=== PATIENT | female | born 2005 | race African-American/Black ===

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

== ENCOUNTER 2024-07-13 14:17 | Emergency (ER) | payer MEDICAID ==
[~2024-07-13] VITALS: Ht 165.1 cm; Wt 60.0 kg
[~2024-07-13 14:17] MED LIST: IBUP-2741 MT
[2024-07-13 14:24] VITALS: O2SAT 100
[2024-07-13] MEDS: KETOROLAC 30MG/ML VIAL IM ONE (16:00)
[2024-07-13] MEDS: ONDANSETRON 4MG ODT PO ONE (16:00)
[2024-07-13] MEDS: HYDROCODONE/ACETAMINOPHEN 5/325MG TABLET PO ONE (16:00)
[2024-07-13 17:31] LABS: HEMATOCRIT. 41.1 % (36.0-48.0); HEMOGLOBIN. 13.7 g/dL (12.0-16.0); MEAN CORPUSCULAR HGB CONC 33.3 g/dL (31.0-37.0); MEAN CORPUSCULAR VOLUME 96.1 fL (81.0-99.0); MEAN PLATELET VOLUME 9.6 fl (7.4-10.4); PLATELET 302 x1000/uL (130-400); RED BLOOD CELL COUNT 4.28 mill/uL (4.2-5.4); RED CELL DISTRIBUTION WIDTH 12.8 % (11.6-14.6); WHITE BLOOD COUNT 11.6 x1000/uL (4.5-11.0)
[2024-07-13 17:32] LABS: DIFFERENTIAL COMMENT 1
[2024-07-13 17:41] LABS: CHLORIDE 106 mEq/L (98-107); POTASSIUM 3.9 mEq/L (3.5-5.1); SODIUM 141 mEq/L (136-145)
[2024-07-13] MEDS: SODIUM CHLORIDE 0.9% 1,000 ML IV ONE (17:41)
[2024-07-13 17:42] LABS: CARBON DIOXIDE 23 mEq/L (21-32)
[2024-07-13 17:43] LABS: CALCIUM 10.2 mg/dL (8.7-10.4)
[2024-07-13 17:47] LABS: GLUCOSE 179 mg/dL (70-105); UREA NITROGEN BLOOD 18 mg/dL (9-23)
[2024-07-13 17:48] LABS: HCG SCREEN NEGATIVE
[2024-07-13 18:06] LABS: PLATELET ESTIMATE NORMAL
[2024-07-13 21:44] LABS: CLARITY URINE TURBID (CLEAR); COLOR URINE YELLOW (YELLOW); GLUCOSE URINE 1+ (NEGATIVE); KETONES URINE 1+ (NEGATIVE); LEUKOCYTE ESTERASE URINE NEGATIVE (NEGATIVE); NITRITE URINE POSITIVE (NEGATIVE); OCCULT BLOOD URINE NEGATIVE (NEGATIVE); PH URINE 5.5 (4.5-8.0); PROTEIN URINE 1+ (NEGATIVE); SPECIFIC GRAVITY URINE 1.031 (1.005-1.030); UROBILINOGEN URINE 0.2 E.U./dL (0.2-1.0)
[2024-07-13] MEDS ORDERED: NITR-87 MT (21:49)
[2024-07-13 21:56] LABS: BACTERIA URINE 2+; RBC URINE 0-2 /hpf (0-2); SQUAMOUS EPITHELIAL CELL URINE 1+ /lpf (RARE/1+); WBC URINE 0-2 /hpf (0-2)
[2024-07-13] MEDS: NITROFURANTOIN 100MG M/M CAPSULE PO ONE (22:00)
[2024-07-13 22:55] VITALS: BP 112/98; PULSE 85; RESP 18; TEMP 36.83628; O2SAT 100
== END 2024-07-13 22:56 | disposition home or self-care (01) ==
LOC: ER 14:17
DX: N39.0 Urinary tract infection, site not specified (principal)
CPT/HCPCS: 80048; 81003; 84703; 83690; 85025; 36415; 96360; 96361; 96372; 99284; Q0162; J1885; J7030; Z7610 ×2